=== PATIENT | female | born 1990 | race Caucasian/White ===

== ENCOUNTER 2016-08-22 19:46 | Inpatient (IN) ==
--- NOTE | 2016-08-22 20:05 | Emergency Department Note ---
Disposition Clinical Impression: Suicidal ideation, Suicide attempt Disposition: Admitted As Inpatient Condition: Fair Referrals: NO,PCP [Primary Care Provider] - Forms: ED Satisfaction Letter Time of Disposition: 21:09 Psych HPI - General Chief Complaint: ED Psychiatric Symptoms Stated Complaint: si Time Seen by Provider: 08/22/16 19:49 Source: patient Mode of arrival: ambulatory Limitations: no limitations Nursing Notes Reviewed: Yes Vital Signs Reviewed: Yes - History of Present Illness HPI Narrative: Patient is a 26-year-old female with past medical history of bipolar depression , seizures. She presents today due to suicidal ideation and suicide attempt. Patient says that she has been feeling down recently, haa been thinking about family members that have passed way (like her grandfather). She also says that she has "issues with her cousin "which she will not go into further detail about. She states that she could not sleep last night, was tired today, started having suicidal ideation. She was going to take a bottle of pills but was stopped by her mom and sister. Denies actually ingesting any medications. Denies any drug use. Denies any other self-harm like cutting. Denies any chest pain, shortness breath, nausea, vomiting, fevers, abdominal pain, dysuria , hematuria, chance of . - Related Data Home Medications Medication Instructions Recorded Confirmed Aripiprazole [Abilify] 5 mg PO HS 05/05/15 08/12/16 Escitalopram [Lexapro] 20 mg PO DAILY 05/05/15 08/12/16 Lamotrigine [Lamictal] 100 mg PO BID 05/05/15 08/12/16 Buspirone HCl [Buspar] 5 mg PO BID 11/20/15 08/12/16 Trazodone HCl 100 - 200 mg PO HS PRN 11/20/15 08/12/16 SUMAtriptan Succinate [Imitrex] 100 mg PO Q2H PRN 08/12/16 08/12/16 Previous Rx's Medication Instructions Recorded OxyCODONE/APAP 5/325 [Percocet 1 each PO Q6HR PRN #30 tablet 08/12/16 5/325 MG] Allergies Allergy/AdvReac Type Severity Reaction Status Date / Time No Known Allergies Allergy Verified 08/12/16 07:11 All systems ED: reviewed and negative except as stated. Constitutional: Denies: fever Cardiovascular: Denies: chest pain, palpitations Respiratory: Denies: cough, dyspnea, wheezes Gastrointestinal: Denies: abdominal pain, nausea, vomiting Genitourinary: Denies: urgency, frequency, hematuria, discharge Musculoskeletal: Denies: back pain Integumentary: Denies: rash Neurological: Denies: headache, weakness, numbness, paresthesias Psychiatric: Reports: depression, suicidal thoughts. Denies: homicidal thoughts , visual hallucinations Past Medical History - Past Medical History Attestation: Yes The following information was validated with the patient. Source: patient Medical history: Reports: asthma, seizures, other Psychiatric history: Reports: depression - Social History Smoking Status: Current every day smoker Smokeless Tobacco Status: No Alcohol use: Reports: none Drug use: Reports: none Physical Exam - General Limitations: no limitations General appearance: alert, in no apparent distress - Head Head exam: atraumatic, normocephalic, normal inspection - Eye Eye exam: Present: normal appearance, PERRL, EOMI - ENT ENT exam: normal exam, normal oropharynx, mucous membranes moist - Neck Neck exam: Present: normal inspection, full ROM, trachea midline - Chest Chest inspection: Present: normal inspection, symmetric chest wall rise - Respiratory Respiratory exam: Present: normal lung sounds bilaterally - Cardiovascular Cardiovascular exam: Present: regular rate, normal rhythm, normal heart sounds - Abdominal Exam Abdominal exam: Present: soft, Non-Tender. Absent: tenderness, distention, guarding, rebound, rigidity - Extremities Exam Extremities exam: Present: normal inspection, full ROM. Absent: tenderness, pedal edema - Neurological Exam Neurological exam: Present: alert, oriented X3 - Psychiatric Psychiatric exam: Present: normal affect, normal mood - Skin Skin exam: Present: warm, dry, intact, normal color Course Course Narrative: Patient vitals within normal limits. Patient already has a pink slip filled out by health officer at [facility]. Physical exam was benign. We will obtain medical clearance labs. Once medically cleared, patient has already been accepted to psychiatric service. 21:08 labs negative. Patient is pending a urine toxicology screen. If negative, patient will be admitted. Psychiatric team was recalled, they have confirmed that the patient is already accepted to , just need med clearance labs. 21:12 Urine tox negative. Patient admitted to . Vital Signs Temperature 97.2 F L 08/22/16 19:48 Pulse Rate 114 08/22/16 19:48 Respiratory Rate 18 08/22/16 19:48 Blood Pressure 127/55 08/22/16 19:48 O2 Sat by Pulse Oximetry 98 08/22/16 19:48 Temperature 97.2 F L 08/22/16 19:48 Pulse Rate 114 08/22/16 19:48 Respiratory Rate 18 08/22/16 19:48 Blood Pressure 127/55 08/22/16 19:48 O2 Sat by Pulse Oximetry 98 08/22/16 19:48 Oxygen Delivery Oxygen Delivery Room Air Psych - MDM Narrative Medical decision making narrative: Patient vitals within normal limits. Patient already has a pink slip filled out by health officer at [facility]. Physical exam was benign. We will obtain medical clearance labs. Once medically cleared, patient has already been accepted to psychiatric service. 21:08 labs negative. Patient is pending a urine toxicology screen. If negative, patient will be admitted. Psychiatric team was recalled, they have confirmed that the patient is already accepted to , just need med clearance labs. 21:12 Urine tox negative. Patient admitted to . - Lab Data Lab results reviewed: Yes I reviewed the patient's lab results. Result diagrams: 08/22/16 20:20 08/22/16 20:20 Lab Results 08/22/16 08/22/16 08/22/16 Range/Units 20:14 20:14 20:20 WBC 10.7 (4.3-11.1) K/mcL RBC 5.28 H (3.82-4.97) M/mcL Hgb 14.8 (11.5-15.4) g/dL Hct 45.6 H (35.3-44.9) % MCV 86.4 (83.0-100.0) fL MCH 28.0 (28.0-33.3) pg MCHC 32.5 (31.6-35.5) g/dL RDW 13.4 (11.5-14.5) % Plt Count 295 (140-400) K/mcL MPV 11.8 (9.4-12.4) fL Immature Gran % 0.6 (0-4) % Seg Neutrophils % 62.6 % Lymphocytes % 23.9 % Monocytes % 6.7 % Eosinophils % 5.6 % Basophils % 0.6 % Neutrophils # 6.7 (1.6-8.9) K/mcL Lymphocytes # 2.6 (0.6-4.6) K/mcL Monocytes # 0.7 (0.0-1.3) K/mcL Eosinophils # 0.6 (0.0-0.6) K/mcL Basophils # 0.1 (0.0-0.2) K/mcL Sodium (136-145) mEq/L Potassium (3.5-4.5) mEq/L Chloride (98-109) mEq/L Carbon Dioxide (19-29) mEq/L BUN (7-20) mg/dL Creatinine (0.57-1.11) mg/dL Est GFR ( Amer) (> 60) Est GFR (Non-Af Amer) (> 60) BUN/Creatinine Ratio (6-26) Glucose (70-99) mg/dL Calculated Osmolality (280-300) Calcium (8.6-10.8) mg/dL Urine Color Yellow (Yellow) Urine Clarity Cloudy A (Clear) Urine pH 6.0 (5.0-8.0) pH Units Ur Specific [place] 1.015 (1.010-1.025) Urine Protein Negative (Neg-Trace) mg/dL Urine Glucose (UA) Normal (Normal) mg/dL Urine Ketones Negative (Negative) mg/dL Urine Blood Negative (Negative) Urine Nitrite Negative (Negative) Urine Bilirubin Negative (Negative) Urine Urobilinogen Normal (Normal) mg/dL Ur Leukocyte Esterase Negative (Negative) Urine Microscopic RBC 3-5 H (0-3) per hpf Urine Microscopic WBC 3-5 H (0-3) per hpf Ur Squamous Epith Cells Many H (None-Few) per lpf Urine Bacteria Moderate H (None-Few) per hpf Hyaline Casts None Seen (None-Few) per lpf Urine Test Negative (Negative) Salicylates (15-30) mg/dL Acetaminophen (10-30) mcg/mL Ethyl Alcohol (0-10) mg/dL 08/22/16 Range/Units 20:20 WBC (4.3-11.1) K/mcL RBC (3.82-4.97) M/mcL Hgb (11.5-15.4) g/dL Hct (35.3-44.9) % MCV (83.0-100.0) fL MCH (28.0-33.3) pg MCHC (31.6-35.5) g/dL RDW (11.5-14.5) % Plt Count (140-400) K/mcL MPV (9.4-12.4) fL Immature Gran % (0-4) % Seg Neutrophils % % Lymphocytes % % Monocytes % % Eosinophils % % Basophils % % Neutrophils # (1.6-8.9) K/mcL Lymphocytes # (0.6-4.6) K/mcL Monocytes # (0.0-1.3) K/mcL Eosinophils # (0.0-0.6) K/mcL Basophils # (0.0-0.2) K/mcL Sodium 140 (136-145) mEq/L Potassium 3.5 (3.5-4.5) mEq/L Chloride 107 (98-109) mEq/L Carbon Dioxide 23 (19-29) mEq/L BUN 6 L (7-20) mg/dL Creatinine 0.70 (0.57-1.11) mg/dL Est GFR ( Amer) > 60 (> 60) Est GFR (Non-Af Amer) > 60 (> 60) BUN/Creatinine Ratio 9 (6-26) Glucose 94 (70-99) mg/dL Calculated Osmolality 287 (280-300) Calcium 9.2 (8.6-10.8) mg/dL Urine Color (Yellow) Urine Clarity (Clear) Urine pH (5.0-8.0) pH Units Ur Specific [place] (1.010-1.025) Urine Protein (Neg-Trace) mg/dL Urine Glucose (UA) (Normal) mg/dL Urine Ketones (Negative) mg/dL Urine Blood (Negative) Urine Nitrite (Negative) Urine Bilirubin (Negative) Urine Urobilinogen (Normal) mg/dL Ur Leukocyte Esterase (Negative) Urine Microscopic RBC (0-3) per hpf Urine Microscopic WBC (0-3) per hpf Ur Squamous Epith Cells (None-Few) per lpf Urine Bacteria (None-Few) per hpf Hyaline Casts (None-Few) per lpf Urine Test (Negative) Salicylates < 5.0 L (15-30) mg/dL Acetaminophen < 1.0 L (10-30) mcg/mL Ethyl Alcohol < 10 (0-10) mg/dL Psychiatric Medical Clearance - Medical Clearance Checklist Does the patient have a NEW psychiatric condition?: No Any abnormalities indicating possible medical illness?: No Any history of medical issues?: No Medical History: No Social History Section defined Any abnormal vital signs prior to transfer?: No Current Vitals: Last Vital Signs Temp 97.2 F L 08/22/16 19:48 Pulse 114 08/22/16 19:48 Resp 18 08/22/16 19:48 BP 127/55 08/22/16 19:48 Pulse Ox 98 08/22/16 19:48 Is the patient intoxicated or cognitively impaired?: No Psychiatric Lab Panel: Drug Levels and Toxicity 08/22/16 20:20 Acetaminophen < 1.0 L Ethyl Alcohol < 10 Any abnormalities on the physical exam?: No Any abnormal labs?: No Abnormal Labs: Abnormal lab results RBC 5.28 M/mcL (3.82-4.97) H 08/22/16 20:20 Hct 45.6 % (35.3-44.9) H 08/22/16 20:20 BUN 6 mg/dL (7-20) L 08/22/16 20:20 Urine Clarity Cloudy (Clear) A 08/22/16 20:14 Urine Microscopic RBC 3-5 per hpf (0-3) H 08/22/16 20:14 Urine Microscopic WBC 3-5 per hpf (0-3) H 08/22/16 20:14 Ur Squamous Epith Cells Many per lpf (None-Few) H 08/22/16 20:14 Urine Bacteria Moderate per hpf (None-Few) H 08/22/16 20:14 Salicylates < 5.0 mg/dL (15-30) L 08/22/16 20:20 Acetaminophen < 1.0 mcg/mL (10-30) L 08/22/16 20:20 Does the patient require durable medical equiptment?: No Is the patient ambulatory?: No Is the patient a fall risk?: No Has the patient been medically cleared?: Yes Any acute medical condition require Tx prior to transfer?: No Statement of Medical Clearance: I have evaluated the patient, reviewed diagnostic information, and certify that the patient's medical condition is sufficiently stable that transfer to the psychiatric unit does not pose a significant risk of deterioration. Attestation Statement - Attestation Attestation: I examined this patient and my medical decision-making was reviewed with the DECISION ANALYST/PA/Advanced Practice Nurse/Resident Physician. I agree with the documented findings, disposition and treatment plan as described except to the extent set forth below.
[2016-08-22 20:28] LABS: Basophils # 0.1 K/mcL (0.0-0.2); Basophils % 0.6 %; Eosinophils # 0.6 K/mcL (0.0-0.6); Eosinophils % 5.6 %; Hematocrit 45.6 % (35.3-44.9); Hemoglobin 14.8 g/dL (11.5-15.4); Immature Granulocytes % 0.6 % (0-4); Lymphocytes # 2.6 K/mcL (0.6-4.6); Lymphocytes % 23.9 %; Mean Corpuscular HGB Conc 32.5 g/dL (31.6-35.5); Mean Corpuscular Volume 86.4 fL (83.0-100.0); Mean Platelet Volume 11.8 fL (9.4-12.4); Monocytes # 0.7 K/mcL (0.0-1.3); Monocytes % 6.7 %; Neutrophils # 6.7 K/mcL (1.6-8.9); Platelet Count 295 K/mcL (140-400); Red Blood Count 5.28 M/mcL (3.82-4.97); Red Cell Distribution Width 13.4 % (11.5-14.5); Segmented Neutrophils % 62.6 %
[2016-08-22 20:35] LABS: Bilirubin,Urine Negative (Negative); Blood,Urine Negative (Negative); Clarity,Urine Cloudy (Clear); Color,Urine Yellow (Yellow); Glucose,Urine (UA) Normal (Normal); Ketones,Urine Negative (Negative); Leukocyte Esterase,Urine Negative (Negative); Nitrite,Urine Negative (Negative); Protein,Urine Negative (Neg-Trace); Specific Gravity,Urine 1.015 (1.010-1.025); Urobilinogen,Urine Normal (Normal)
[2016-08-22 20:36] LABS: Bacteria,Urine Moderate per hpf (None-Few); Hyaline Casts,Urine None Seen per lpf (None-Few); Squamous Epithelial Cell,Urine Many per lpf (None-Few)
[2016-08-22 20:45] LABS: BUN/Creatinine Ratio 9 (6-26); Blood Urea Nitrogen 6 mg/dL (7-20); Calcium 9.2 mg/dL (8.6-10.8); Carbon Dioxide 23 mEq/L (19-29); Chloride 107 mEq/L (98-109); Glucose 94 mg/dL (70-99); Osmolality,Calculated 287 (280-300); Potassium 3.5 mEq/L (3.5-4.5); Sodium 140 mEq/L (136-145); eGFR For African Americans > 60 (> 60); eGFR For Non-African Americans > 60 (> 60)
[2016-08-22 20:46] LABS: Acetaminophen < 1.0 mcg/mL (10-30); Salicylate < 5.0 mg/dL (15-30)
[2016-08-22 20:49] LABS: Ethanol < 10 mg/dL (0-10)
[2016-08-22 21:10] LABS: Amphetamine Screen,Urine Negative ng/mL (Cutoff=1000); Barbiturate Screen,Urine Negative ng/mL (Cutoff=200); Benzodiazepines Screen,Urine Negative ng/mL (Cutoff=200); Cannabinoid Screen,Urine Negative ng/mL (Cutoff = 50); Cocaine Screen,Urine Negative ng/mL (Cutoff= 300); Opiate Screen,Urine Negative ng/mL (Cutoff=300); Phencyclidine Screen,Urine Negative ng/mL (Cutoff=25)
[2016-08-22] MEDS ORDERED: hydrOXYzine pamoate 25 MG CAPSULE PO PRN (21:57)
[2016-08-22] MEDS ORDERED: traZODone 50 MG TABLET PO PRN (21:57)
[2016-08-22] MEDS ORDERED: Ibuprofen 400 MG TABLET PO PRN (21:57)
[2016-08-22] MEDS ORDERED: MOM Conc 10 ML UD.LIQ PO PRN (21:57)
[2016-08-22] MEDS ORDERED: Mag Hydrox/Al Hydrox/Simeth 30 ML UDC PO PRN (21:57)
[2016-08-22] MEDS ORDERED: *HR* LORazepam 2 MG/ML VIAL IM PRN (21:57)
[2016-08-22] MEDS ORDERED: *HR* LORazepam 1 MG TABLET PO PRN (21:57)
[2016-08-22] MEDS ORDERED: Haloperidol Lactate 5 MG/ML VIAL IM PRN (21:57)
[2016-08-23] MEDS ORDERED: Nicotine 2 MG GUM BC PRN (08:55)
[2016-08-23] MEDS ORDERED: Nicotine 21 MG PATCH.TD24 TD SCH (09:00)
--- NOTE | 2016-08-23 10:15 | Psychiatry History & Physical ---
Date of Encounter: 08/24/16 Time of Encounter: 09:30 History of Present Illness Patient Stated Chief Complaint: Suicidal Medicare Admission Attestation: For traditional Medicare patients the provided hospital inpatient services are reasonable and necessary and in the case of services not specified as inpatient -only under 42 CFR 419.22 (n), that they are appropriately provided as inpatient services in accordance 42 CFR 412.3. For Critical Access Hospital the patient may reasonably be expected to be discharged or transferred to a hospital within 96 hours after admission to the Critical Access Hospital. Admitted From: Emergency Dept History of Present Illness: Ms. Soni is a 26 year old female admitted from the emergency room for evaluation treatment of depression and suicidal ideation with intent to overdose on medication. Patient was feeling depressed and was going to overdose on medication and her mother's sister stopped her and brought her into the hospital. Patient has a history of depressive disorder and bipolar disorder for several years and has been treated as outpatient at [facility] and [facility]. She also has a history of seizure disorder and treated with Lamictal. Patient had history of self mutilating cutting and denied any previous hospitalization. She has high school education but has difficulty reading and writing. She is too busy. 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 She smokes half a pack of cigarettes a day, consumes some caffeine from soda. She denies using alcohol or drugs. Past Med Surg Social Fam HX - Past Medical History Medical history: asthma, seizures, other - Past Psychiatric History Psychiatric history: Reports: bipolar, depression. Denies: previous psychiatric hospitalization Family psychiatric history: Unknown Family History of Suicide: Unknown - Past Surgical History Surgical History: cholecystectomy - Social History Smoking Status: Current every day smoker Smokeless Tobacco Status: No Alcohol use: none Drug use: none Medications & Allergies Aripiprazole [Abilify] 5 mg PO HS 05/05/15 [History] Escitalopram [Lexapro] 20 mg PO DAILY 05/05/15 [History] Lamotrigine [Lamictal] 100 mg PO BID 05/05/15 [History] Buspirone HCl [Buspar] 5 mg PO BID 11/20/15 [History] Trazodone HCl 100 - 200 mg PO HS PRN 11/20/15 [History] SUMAtriptan Succinate [Imitrex] 100 mg PO Q2H PRN MDD 200 mg 08/12/16 [History] Allergies No Known Allergies Allergy (Verified 08/12/16 07:11) Review of Systems Psychiatric: Reports: depression, suicidal ideation, mood swings Mental Status Exam Patient orientation: Yes Person, Yes Time, Yes Place Level of alertness: Alert Patient appearance: Appropriate, Well Groomed, Obese Behavior: calm, cooperative, anxious Psychomotor activity: Normal Eye contact: Maintains Eye Contact Mood description: Depressed, Anxious Affect description: congruent with mood, constricted Speech pattern: Normal rate, Normal rhythm, Normal tone Speech volume: Normal Thought process: Linear, Goal Oriented Thought content: Yes Suicidal ideation, No Homicidal ideation, No Overt delusions Perceptual disturbances: No Auditory hallucinations, No Visual hallucinations Attention span: Capable of Focused Attention Memory description: Grossly Intact Patient reliability: Reliable Historian Intelligence estimate: Below Average Judgment: Limited Insight: Partial Results - Vital Signs Vital signs: Temp Pulse Resp BP Pulse Ox 97.9 F 71 16 110/70 93 08/23/16 08:54 08/23/16 08:54 08/23/16 08:54 08/23/16 08:54 08/22/16 21:17 - Labs Labs: Laboratory Last Values WBC 10.7 K/mcL (4.3-11.1) 08/22/16 20:20 RBC 5.28 M/mcL (3.82-4.97) H 08/22/16 20:20 Hgb 14.8 g/dL (11.5-15.4) 08/22/16 20:20 Hct 45.6 % (35.3-44.9) H 08/22/16 20:20 MCV 86.4 fL (83.0-100.0) 08/22/16 20:20 MCH 28.0 pg (28.0-33.3) 08/22/16 20:20 MCHC 32.5 g/dL (31.6-35.5) 08/22/16 20:20 RDW 13.4 % (11.5-14.5) 08/22/16 20:20 Plt Count 295 K/mcL (140-400) 08/22/16 20:20 MPV 11.8 fL (9.4-12.4) 08/22/16 20:20 Immature Gran % 0.6 % (0-4) 08/22/16 20:20 Seg Neutrophils % 62.6 % 08/22/16 20:20 Lymphocytes % 23.9 % 08/22/16 20:20 Monocytes % 6.7 % 08/22/16 20:20 Eosinophils % 5.6 % 08/22/16 20:20 Basophils % 0.6 % 08/22/16 20:20 Neutrophils # 6.7 K/mcL (1.6-8.9) 08/22/16 20:20 Lymphocytes # 2.6 K/mcL (0.6-4.6) 08/22/16 20:20 Monocytes # 0.7 K/mcL (0.0-1.3) 08/22/16 20:20 Eosinophils # 0.6 K/mcL (0.0-0.6) 08/22/16 20:20 Basophils # 0.1 K/mcL (0.0-0.2) 08/22/16 20:20 Sodium 140 mEq/L (136-145) 08/22/16 20:20 Potassium 3.5 mEq/L (3.5-4.5) 08/22/16 20:20 Chloride 107 mEq/L (98-109) 08/22/16 20:20 Carbon Dioxide 23 mEq/L (19-29) 08/22/16 20:20 BUN 6 mg/dL (7-20) L 08/22/16 20:20 Creatinine 0.70 mg/dL (0.57-1.11) 08/22/16 20:20 Est GFR ( Amer) > 60 (> 60) 08/22/16 20:20 Est GFR (Non-Af Amer) > 60 (> 60) 08/22/16 20:20 BUN/Creatinine Ratio 9 (6-26) 08/22/16 20:20 Glucose 94 mg/dL (70-99) 08/22/16 20:20 Calculated Osmolality 287 (280-300) 08/22/16 20:20 Calcium 9.2 mg/dL (8.6-10.8) 08/22/16 20:20 Urine Color Yellow (Yellow) 08/22/16 20:14 Urine Clarity Cloudy (Clear) A 08/22/16 20:14 Urine pH 6.0 pH Units (5.0-8.0) 08/22/16 20:14 Ur Specific [place] 1.015 (1.010-1.025) 08/22/16 20:14 Urine Protein Negative mg/dL (Neg-Trace) 08/22/16 20:14 Urine Glucose (UA) Normal mg/dL (Normal) 08/22/16 20:14 Urine Ketones Negative mg/dL (Negative) 08/22/16 20:14 Urine Blood Negative (Negative) 08/22/16 20:14 Urine Nitrite Negative (Negative) 08/22/16 20:14 Urine Bilirubin Negative (Negative) 08/22/16 20:14 Urine Urobilinogen Normal mg/dL (Normal) 08/22/16 20:14 Ur Leukocyte Esterase Negative (Negative) 08/22/16 20:14 Urine Microscopic RBC 3-5 per hpf (0-3) H 08/22/16 20:14 Urine Microscopic WBC 3-5 per hpf (0-3) H 08/22/16 20:14 Ur Squamous Epith Cells Many per lpf (None-Few) H 08/22/16 20:14 Urine Bacteria Moderate per hpf (None-Few) H 08/22/16 20:14 Hyaline Casts None Seen per lpf (None-Few) 08/22/16 20:14 Urine Test Negative (Negative) 08/22/16 20:14 Salicylates < 5.0 mg/dL (15-30) L 08/22/16 20:20 Urine Opiates Screen Negative ng/mL (Yhxtaf=000) 08/22/16 20:14 Acetaminophen < 1.0 mcg/mL (10-30) L 08/22/16 20:20 Ur Barbiturates Screen Negative ng/mL (Jikrgw=269) 08/22/16 20:14 Ur Phencyclidine Scrn Negative ng/mL (Cutoff=25) 08/22/16 20:14 Ur Amphetamines Screen Negative ng/mL (Pogvtv=5925) 08/22/16 20:14 U Benzodiazepines Scrn Negative ng/mL (Zvqovq=285) 08/22/16 20:14 Urine Cocaine Screen Negative ng/mL (Cutoff= 300) 08/22/16 20:14 U Marijuana (THC) Screen Negative ng/mL (Cutoff = 50) 08/22/16 20:14 Ethyl Alcohol < 10 mg/dL (0-10) 08/22/16 20:20 Assessment and Plan (1) Bipolar disorder current episode depressed Current visit: Yes Status: Acute Plan: Admit inpatient for safety and stabilization, Close observation, Suicide Precautions per unit protocol, Encourage participation in unit milieu, Group Therapy, Monitor sleep, Monitor appetite Additional Plan: We will restart all medications and to monitor her response and make changes as appropriate. Risks, benefits, side effects, alternatives discussed w/pt: Yes Patient agreeable to treatment: Yes Qualifiers: Current episode severity: severe Psychotic features: with psychotic features Qualified Code(s): F31.5 - Bipolar disorder, current episode depressed, severe, with psychotic features
[2016-08-24 09:06] VITALS: BP 122/73
[2016-08-24] MEDS ORDERED: traZODone 50 MG TABLET PO PRN (13:15)
[2016-08-24] MEDS ORDERED: SUMAtriptan succinate 50 MG TABLET PO PRN (13:15)
[2016-08-24] MEDS ORDERED: lamoTRIgine 100 MG TABLET PO SCH (13:15)
--- NOTE | 2016-08-24 14:14 | Discharge Summary ---
Date of Encounter: 08/24/16 Time of Encounter: 13:45 Diagnosis - Discharge Diagnosis (1) Bipolar disorder current episode depressed Status: Acute Qualifiers: Current episode severity: severe Psychotic features: with psychotic features Qualified Code(s): F31.5 - Bipolar disorder, current episode depressed, severe, with psychotic features Medications - Discharge Medications Aripiprazole [Abilify] 5 mg PO HS 05/05/15 [History] Escitalopram [Lexapro] 20 mg PO DAILY 05/05/15 [History] Lamotrigine [Lamictal] 100 mg PO BID 05/05/15 [History] Buspirone HCl [Buspar] 5 mg PO BID 11/20/15 [History] Trazodone HCl 100 - 200 mg PO HS PRN 11/20/15 [History] SUMAtriptan Succinate [Imitrex] 100 mg PO Q2H PRN MDD 200 mg 08/12/16 [History] Allergies No Known Allergies Allergy (Verified 08/12/16 07:11) Provider Date of admission: 08/22/16 21:42 Primary care physician: PCP NO Discharging clinician: Janusz Juarez Assessment and Plan - Patient/Caregiver Discharge Instructions Activity: resume usual activities as tolerated Diet: regular diet - Follow up Plan Follow up with: [facility] [Outside] - 09/27/16 9:20 am (The above appointment is with Dr. Cunningham.) [facility] [Outside] - 09/05/16 8:30 am (The above appointment is with Tara. When you come to your first appointment, you will have an orientation to the agency and you will meet with a counselor. Please bring the following with you to your first visit to the clinic: 1) proof of household income (two consecutive pay stubs, social security award letter, bank statement , statement letter from [facility], child support statement, IRS 1040 or W2 form, or a statement from the person who financially supports you stating they help provide for your basic needs), 2) proof of residency (drivers license, a piece of mail showing your address, a statement from person you live with verifying you live at their address), 3) your social security card, 4) photo ID, 5) your insurance card (if you have commercial insurance you must call to obtain a prior authorization number before you arrive to your first appointment) and 6) if you do not have insurance but have applied for Medicaid, please bring verification you have applied. Also, please bring a copy of guardianship paperwork.) Functional capacity at discharge: independent ambulation Overall status at discharge: Stable Disposition: Home, Self-Care Hospital Course Hospital course: Ms. Soni is a 26 year old female admitted for suicidal ideation. For details of admission please see H&P On the unit patient was started on her medication, no medication changes were made. Patient reported improved sleep and denies suicidal ideation. She was educated about medication compliance. She participated in some activities and she was medically stable at discharge. Her discharge plan and follow-up were reviewed by psychiatric social worker supervisor. - Time Spent with Patient Total time spent providing and/or coordinating discharge services: Less than 30 minutes Quality - Multiple Antipsychotics Patient discharged on 2 or more antipsychotic medications: No Procedures - Procedures Procedures: Medication Management, Crisis Stabilization, Supportive Therapy, Group Therapy, Psychoeducational Therapy Mental Status Exam - Mental Status Exam Patient orientation: Yes Person, Yes Time, Yes Place Level of alertness: Alert Patient appearance: Appropriate, Well Groomed, Obese Behavior: calm, cooperative Psychomotor activity: Normal Eye contact: Maintains Eye Contact Mood description: Euthymic/stable Affect description: congruent with mood, full range Speech pattern: Normal rate, Normal rhythm, Normal tone Speech Volume: Normal Thought process: Linear, Goal Oriented Thought Content: No Suicidal ideation, No Homicidal ideation, No Overt delusions Perceptual Disturbances: No Auditory hallucinations, No Visual hallucinations Judgment: Limited Insight: Partial
[2016-08-24] MEDS ORDERED: ARIPiprazole 5 MG TABLET PO SCH (21:00)
== END 2016-08-24 15:05 | disposition home or self-care (01) | DRG 753 ==
LOC: EMEROO 19:46 → 1ANU 21:42
PROVIDERS: ADMIT Psychiatry & Neurology Psychiatry; ATTEND Psychiatry & Neurology Psychiatry

== ENCOUNTER 2020-11-25 19:10 | Inpatient (IN) ==
[2020-11-25] MEDS ORDERED: Isovue-370 500 ML BOTTLE IVP ONE (20:51)
[2020-11-25] MEDS ORDERED: Ketorolac 15 MG/ML VIAL IVP ONE (20:53)
[2020-11-25 21:25] LABS: Basophils % 0.4 %; Eosinophils % 0.3 %; Hematocrit 41.2 % (35.3-44.9); Monocytes % 10.2 %; Segmented Neutrophils % 82.7 %
[2020-11-25 21:26] LABS: Basophils # 0.1 K/mcL (0.0-0.2); Eosinophils # 0.1 K/mcL (0.0-0.6); Hemoglobin 13.9 g/dL (11.5-15.4); Immature Granulocytes % 1.4 % (0-4); Lymphocytes # 1.4 K/mcL (0.6-4.6); Mean Corpuscular HGB Conc 33.7 g/dL (31.6-35.5); Mean Corpuscular Hemoglobin 29.4 pg (28.0-33.3); Mean Corpuscular Volume 87.3 fL (83.0-100.0); Mean Platelet Volume 11.9 fL (9.4-12.4); Monocytes # 2.8 K/mcL (0.0-1.3); Platelet Count 334 K/mcL (140-400); Red Blood Count 4.72 M/mcL (3.82-4.97); Red Cell Distribution Width 13.3 % (11.5-14.5); White Blood Count 27.8 K/mcL (4.3-11.1)
[2020-11-25 21:38] LABS: Alanine Aminotransferase 10 Units/L (7-52); Albumin 3.8 g/dL (3.5-5.7); Albumin/Globulin Ratio 1.1 (1.1-2.2); Alkaline Phosphatase 103 Units/L (34-104); Aspartate Amino Transferase 11 Units/L (13-39); BUN/Creatinine Ratio 9 (6-26); Bilirubin,Direct 0.3 mg/dL (0.0-0.2); Bilirubin,Indirect 0.9 mg/dL (0.0-1.0); Bilirubin,Total 1.2 mg/dL (0.3-1.0); Blood Urea Nitrogen 7 mg/dL (6-20); Calcium 8.9 mg/dL (8.6-10.3); Carbon Dioxide 22 mEq/L (23-29); Chloride 100 mEq/L (98-107); Globulin 3.4 g/dL (2.4-3.5); Glucose 129 mg/dL (70-105); Osmolality,Calculated 274 (280-300); Potassium 3.3 mEq/L (3.5-5.1); Sodium 132 mEq/L (136-145); Total Protein 7.2 g/dL (6.4-8.9); eGFR For African Americans > 60 (> 60); eGFR For Non-African Americans > 60 (> 60)
[2020-11-25 21:47] LABS: Platelet Estimate Normal (Normal)
[2020-11-25] MEDS ORDERED: Vancomycin 2,000 MG/520 ML IV.SOLN IVPB ONE (22:23)
[2020-11-25] MEDS ORDERED: Piperacillin/Tazobactam 3.375 GM in Water for inj. (sterile) 20 ML IVP ONE (22:23)
[2020-11-25] MEDS ORDERED: *HR* HYDROcodone/Acet 5/325 mg TABLET PO ONE (22:30)
[2020-11-25] MEDS ORDERED: 0.9 % Sodium Chloride 1,000 ML IVC ONE (22:37)
[2020-11-26 03:12] LABS: Bacteria,Urine Few per hpf (None-Few); Bilirubin,Urine Negative (Negative); Blood,Urine Large (Negative); Clarity,Urine Clear (Clear); Color,Urine Light-Orange (Yellow); Glucose,Urine (UA) Normal (Normal); Ketones,Urine Negative (Negative); Leukocyte Esterase,Urine Negative (Negative); Nitrite,Urine Negative (Negative); PH,Urine 6.5 pH Units (5.0-8.0); Protein,Urine Trace mg/dL (Neg-Trace); Specific Gravity,Urine > 1.030 (1.010-1.025); Squamous Epithelial Cell,Urine Moderate per hpf (None-Few); Urobilinogen,Urine Normal (Normal)
[2020-11-26] MEDS ORDERED: Ondansetron 4 MG/2 ML VIAL IVP PRN ×3 (07:37→10:33)
[2020-11-26] MEDS ORDERED: 0.9 % Sodium Chloride w KCl 20 MEQ/1,000 ML MLS IVC SCH ×2 (07:45→10:33)
[2020-11-26] MEDS ORDERED: Piperacillin/Tazobactam 3.375 GM in 0.9 % Sodium Chloride Mini Bag 100 ML IVPB SCH ×3 (08:00→16:00)
[2020-11-26] MEDS ORDERED: Vancomycin 1,750 MG in 0.9 % Sodium Chloride 250 ML IVPB SCH (10:33)
[2020-11-26] MEDS ORDERED: Pantoprazole 40 MG VIAL IVP SCH (10:33)
[2020-11-26] MEDS ORDERED: Naloxone 0.4 MG/ML INJ IVP PRN ×2 (10:33→15:39)
[2020-11-26] MEDS ORDERED: *HR* FentaNYL (PF) 100 MCG/2 ML VIAL IVP PRN ×2 (10:33→15:39)
[2020-11-26] MEDS ORDERED: *HR* OxyCODONE Immed Rel 5 MG TABLET PO PRN (10:46)
[2020-11-26] MEDS ORDERED: Ondansetron 4 MG/2 ML VIAL ONE (11:42)
[2020-11-26] MEDS ORDERED: *HR* Propofol 200 MG/20 ML VIAL IVP ONE (11:42)
[2020-11-26] MEDS ORDERED: *HR* Rocuronium Bromide 50 MG/5 ML VIAL ONE ×2 (11:42→14:07)
[2020-11-26] MEDS ORDERED: Lidocaine -MPF 2% 2 ML VIAL ONE (11:42)
[2020-11-26] MEDS ORDERED: *HR* FentaNYL (PF) 100 MCG/2 ML VIAL ONE ×3 (11:42→13:52)
[2020-11-26] MEDS ORDERED: Lidocaine HCL 4 ML Topical Solution (Laryng-O-Jet Kit Sterile Pak) TP ONE (11:42)
[2020-11-26] MEDS ORDERED: *HR* Midazolam HCl 2 MG/2 ML VIAL ONE (11:42)
[2020-11-26] MEDS ORDERED: *HR* Succinylcholine 200 MG/10 ML VIAL IVP ONE (11:42)
[2020-11-26] MEDS ORDERED: Vancomycin 1,500 MG/265 ML IV.SOLN IVPB SCH (12:00)
[2020-11-26] MEDS ORDERED: Vancomycin 1,000 MG VIAL ONE (13:21)
[2020-11-26] MEDS ORDERED: Sugammadex Sodium 200 MG/2 ML VIAL IV ONE (14:20)
[2020-11-26] MEDS ORDERED: *HR* HYDROMORPHONE 2 MG/ML VIAL ONE (14:23)
[2020-11-26] MEDS: *HR* HYDROmorphone PF 0.5 MG/0.5 ML SYRINGE IVP PRN ×3 (15:10→15:35)
[2020-11-26] MEDS: 0.9 % Sodium Chloride w KCl 20 MEQ/1,000 ML MLS IVC SCH (16:18)
[2020-11-26] MEDS: Vancomycin 1,500 MG/265 ML IV.SOLN IVPB SCH (16:25)
[2020-11-26] MEDS: Piperacillin/Tazobactam 3.375 GM in 0.9 % Sodium Chloride Mini Bag 100 ML IVPB SCH (19:32)
[2020-11-26] MEDS: *HR* OxyCODONE Immed Rel 5 MG TABLET PO PRN (19:41)
[2020-11-27] MEDS ORDERED: Acetaminophen 325 MG TABLET PO PRN (00:38)
[2020-11-27] MEDS: 0.9 % Sodium Chloride w KCl 20 MEQ/1,000 ML MLS IVC SCH ×2 (00:51→11:00)
[2020-11-27] MEDS: Ondansetron 4 MG/2 ML VIAL IVP PRN ×3 (00:59→16:27)
[2020-11-27] MEDS: *HR* OxyCODONE Immed Rel 5 MG TABLET PO PRN ×2 (03:40→11:57)
[2020-11-27] MEDS: Piperacillin/Tazobactam 3.375 GM in 0.9 % Sodium Chloride Mini Bag 100 ML IVPB SCH ×3 (03:41→18:11)
[2020-11-27] MEDS: Vancomycin 1,500 MG/265 ML IV.SOLN IVPB SCH (05:33)
[2020-11-27 05:34] LABS: Basophils # 0.1 K/mcL (0.0-0.2); Basophils % 0.4 %; Eosinophils # 0.1 K/mcL (0.0-0.6); Eosinophils % 0.2 %; Hematocrit 35.5 % (35.3-44.9); Lymphocytes # 0.8 K/mcL (0.6-4.6); Lymphocytes % 3.3 %; Mean Corpuscular HGB Conc 31.8 g/dL (31.6-35.5); Mean Corpuscular Hemoglobin 29.1 pg (28.0-33.3); Mean Corpuscular Volume 91.5 fL (83.0-100.0); Mean Platelet Volume 12.5 fL (9.4-12.4); Monocytes # 1.6 K/mcL (0.0-1.3); Monocytes % 6.7 %; Neutrophils # 21.4 K/mcL (1.6-8.9); Platelet Count 220 K/mcL (140-400); Red Blood Count 3.88 M/mcL (3.82-4.97); Red Cell Distribution Width 13.4 % (11.5-14.5); Segmented Neutrophils % 88.4 %; White Blood Count 24.2 K/mcL (4.3-11.1)
[2020-11-27] MEDS: *HR* Enoxaparin 40 MG/0.4 ML SYRINGE SQ SCH (05:34)
[2020-11-27 05:37] LABS: Hemoglobin 11.3 g/dL (11.5-15.4)
[2020-11-27] MEDS ORDERED: *HR* Enoxaparin 40 MG/0.4 ML SYRINGE SQ SCH ×2 (06:00)
[2020-11-27 10:03] LABS: Calcium 7.6 mg/dL (8.6-10.3); Magnesium 1.8 mg/dL (1.6-2.6); Phosphorous 4.2 mg/dL (2.7-4.5); Potassium 4.2 mEq/L (3.5-5.1)
[2020-11-27] MEDS: Pantoprazole 40 MG VIAL IVP SCH (10:13)
[2020-11-27] MEDS: 0.9 % Sodium Chloride 1,000 ML IVC SCH ×5 (14:09→23:38)
[2020-11-28 01:21] LABS: Basophils # 0.1 K/mcL (0.0-0.2); Basophils % 0.3 %; Eosinophils # 1.4 K/mcL (0.0-0.6); Hematocrit 28.1 % (35.3-44.9); Hemoglobin 9.1 g/dL (11.5-15.4); Immature Granulocytes % 0.8 % (0-4); Lymphocytes # 0.8 K/mcL (0.6-4.6); Lymphocytes % 4.5 %; Mean Corpuscular HGB Conc 32.4 g/dL (31.6-35.5); Mean Corpuscular Hemoglobin 29.7 pg (28.0-33.3); Mean Corpuscular Volume 91.8 fL (83.0-100.0); Mean Platelet Volume 12.4 fL (9.4-12.4); Monocytes # 1.1 K/mcL (0.0-1.3); Monocytes % 6.4 %; Neutrophils # 14.1 K/mcL (1.6-8.9); Platelet Count 214 K/mcL (140-400); Red Blood Count 3.06 M/mcL (3.82-4.97); White Blood Count 17.6 K/mcL (4.3-11.1)
[2020-11-28 01:55] LABS: Calcium 7.2 mg/dL (8.6-10.3); Magnesium 1.7 mg/dL (1.6-2.6); Phosphorous 3.2 mg/dL (2.7-4.5); Potassium 4.2 mEq/L (3.5-5.1)
[2020-11-28] MEDS: Piperacillin/Tazobactam 3.375 GM in 0.9 % Sodium Chloride Mini Bag 100 ML IVPB SCH ×3 (03:20→17:56)
[2020-11-28] MEDS: 0.9 % Sodium Chloride 1,000 ML IVC SCH ×3 (03:29→14:29)
[2020-11-28] MEDS: *HR* Enoxaparin 40 MG/0.4 ML SYRINGE SQ SCH (06:17)
[2020-11-28] MEDS: Pantoprazole 40 MG VIAL IVP SCH (09:00)
[2020-11-28] MEDS: *HR* OxyCODONE Immed Rel 5 MG TABLET PO PRN ×2 (09:18→19:25)
[2020-11-28] MEDS: Sodium Bicarbonate 75 MEQ in 0.45 % Sodium Chloride 1,000 ML IVC SCH (15:02)
[2020-11-28 16:25] LABS: Sodium, Urine 62.7 mEq/L
[2020-11-28 16:35] LABS: Albumin 2.8 g/dL (3.5-5.7); Calcium 7.9 mg/dL (8.6-10.3); Phosphorous 3.2 mg/dL (2.7-4.5)
[2020-11-29] MEDS: Piperacillin/Tazobactam 3.375 GM in 0.9 % Sodium Chloride Mini Bag 100 ML IVPB SCH ×4 (02:57→20:49)
[2020-11-29] MEDS: Sodium Bicarbonate 75 MEQ in 0.45 % Sodium Chloride 1,000 ML IVC SCH ×3 (02:59→20:50)
[2020-11-29] MEDS: *HR* Enoxaparin 30 MG/0.3 ML SYRINGE SQ SCH (05:33)
[2020-11-29] MEDS: *HR* OxyCODONE Immed Rel 5 MG TABLET PO PRN (05:34)
[2020-11-29 07:15] LABS: Basophils # 0.1 K/mcL (0.0-0.2); Basophils % 0.4 %; Eosinophils # 2.3 K/mcL (0.0-0.6); Eosinophils % 13.8 %; Hematocrit 29.7 % (35.3-44.9); Immature Granulocytes % 1.5 % (0-4); Lymphocytes # 1.2 K/mcL (0.6-4.6); Lymphocytes % 7.6 %; Mean Corpuscular HGB Conc 30.6 g/dL (31.6-35.5); Mean Corpuscular Hemoglobin 28.5 pg (28.0-33.3); Mean Corpuscular Volume 93.1 fL (83.0-100.0); Mean Platelet Volume 12.4 fL (9.4-12.4); Monocytes # 1.3 K/mcL (0.0-1.3); Monocytes % 7.9 %; Neutrophils # 11.2 K/mcL (1.6-8.9); Platelet Count 318 K/mcL (140-400); Red Blood Count 3.19 M/mcL (3.82-4.97); Segmented Neutrophils % 68.8 %; White Blood Count 16.3 K/mcL (4.3-11.1)
[2020-11-29 07:17] LABS: Hemoglobin 9.1 g/dL (11.5-15.4)
[2020-11-29 08:18] LABS: Potassium 3.9 mEq/L (3.5-5.1)
[2020-11-29] MEDS: Pantoprazole 40 MG VIAL IVP SCH (08:58)
[2020-11-29] MEDS: Ondansetron 4 MG/2 ML VIAL IVP PRN (21:07)
[2020-11-30] MEDS: Sodium Bicarbonate 75 MEQ in 0.45 % Sodium Chloride 1,000 ML IVC SCH ×3 (03:56→18:56)
[2020-11-30] MEDS: Piperacillin/Tazobactam 3.375 GM in 0.9 % Sodium Chloride Mini Bag 100 ML IVPB SCH (03:57)
[2020-11-30] MEDS: *HR* Enoxaparin 30 MG/0.3 ML SYRINGE SQ SCH (03:59)
[2020-11-30 05:26] LABS: Basophils # 0.1 K/mcL (0.0-0.2); Basophils % 0.4 %; Eosinophils # 1.2 K/mcL (0.0-0.6); Eosinophils % 7.8 %; Hematocrit 30.2 % (35.3-44.9); Hemoglobin 9.8 g/dL (11.5-15.4); Immature Granulocytes % 1.6 % (0-4); Lymphocytes # 1.2 K/mcL (0.6-4.6); Lymphocytes % 7.9 %; Mean Corpuscular HGB Conc 32.5 g/dL (31.6-35.5); Mean Corpuscular Hemoglobin 29.6 pg (28.0-33.3); Mean Corpuscular Volume 91.2 fL (83.0-100.0); Mean Platelet Volume 12.1 fL (9.4-12.4); Monocytes # 1.4 K/mcL (0.0-1.3); Monocytes % 9.2 %; Neutrophils # 11.4 K/mcL (1.6-8.9); Platelet Count 379 K/mcL (140-400); Red Blood Count 3.31 M/mcL (3.82-4.97); Red Cell Distribution Width 13.9 % (11.5-14.5); Segmented Neutrophils % 73.1 %; White Blood Count 15.6 K/mcL (4.3-11.1)
[2020-11-30 05:50] LABS: Calcium 8.1 mg/dL (8.6-10.3); Potassium 3.8 mEq/L (3.5-5.1)
[2020-11-30] MEDS: Pantoprazole 40 MG VIAL IVP SCH (08:50)
[2020-11-30 14:45] LABS: Hepatitis B Surface Antigen Nonreactive (Nonreactive)
[2020-11-30 15:13] LABS: Hepatitis B Surface Antibody 83.08 mIU/mL
[2020-11-30] MEDS ORDERED: Scopolamine Patch 1.5 MG PATCH.TD72 TD SCH ×2 (17:45)
[2020-11-30] MEDS ORDERED: Piperacillin/Tazobactam 3.375 GM in 0.9 % Sodium Chloride Mini Bag 100 ML IVPB SCH (18:00)
[2020-12-01] MEDS: *HR* OxyCODONE Immed Rel 5 MG TABLET PO PRN (01:54)
[2020-12-01] MEDS: Ondansetron 4 MG/2 ML VIAL IVP PRN ×2 (01:59→09:00)
[2020-12-01 02:25] LABS: Magnesium 1.9 mg/dL (1.6-2.6); Phosphorous 4.3 mg/dL (2.7-4.5)
[2020-12-01 02:26] LABS: Calcium 7.9 mg/dL (8.6-10.3); Potassium 3.8 mEq/L (3.5-5.1)
[2020-12-01] MEDS: *HR* Enoxaparin 30 MG/0.3 ML SYRINGE SQ SCH (05:06)
[2020-12-01] MEDS: Sodium Bicarbonate 75 MEQ in 0.45 % Sodium Chloride 1,000 ML IVC SCH ×2 (06:21→18:19)
[2020-12-01] MEDS ORDERED: *HR* Heparin 10,000 UNIT/10 ML VIAL IV PRN ×2 (07:57→17:21)
[2020-12-01] MEDS ORDERED: 0.9 % Sodium Chloride 250 ML IVC PRN ×2 (07:57→17:21)
[2020-12-01] MEDS ORDERED: 0.9 % Sodium Chloride 1,000 ML PRIME SCH ×2 (08:00→17:21)
[2020-12-01] MEDS ORDERED: Lidocaine/EPI 1:100k 1% 50 ML VIAL ONE (08:48)
[2020-12-01] MEDS ORDERED: Heparin 1,000 UNITS/500 mL 500 ML ONE (08:48)
[2020-12-01] MEDS: Pantoprazole 40 MG VIAL IVP SCH (08:54)
[2020-12-01 09:57] LABS: INR 1.2; Prothrombin Time 14.1 Seconds (9.4-12.1)
[2020-12-01] MEDS ORDERED: *HR* Heparin 5,000 UNIT/ML VIAL ONE (12:31)
[2020-12-01] MEDS ORDERED: *HR* FentaNYL (PF) 100 MCG/2 ML VIAL IVP PRN (17:21)
[2020-12-01] MEDS ORDERED: Acetaminophen 325 MG TABLET PO PRN (17:21)
[2020-12-01] MEDS ORDERED: *HR* OxyCODONE Immed Rel 5 MG TABLET PO PRN (17:21)
[2020-12-01] MEDS ORDERED: Naloxone 0.4 MG/ML INJ IVP PRN (17:21)
[2020-12-02 03:02] LABS: Calcium 7.9 mg/dL (8.6-10.3); Potassium 3.9 mEq/L (3.5-5.1)
[2020-12-02] MEDS: Sodium Bicarbonate 75 MEQ in 0.45 % Sodium Chloride 1,000 ML IVC SCH ×2 (03:42→20:58)
[2020-12-02] MEDS ORDERED: *HR* Enoxaparin 30 MG/0.3 ML SYRINGE SQ SCH (06:00)
[2020-12-02] MEDS ORDERED: 0.9 % Sodium Chloride 250 ML IVC PRN (07:13)
[2020-12-02] MEDS ORDERED: *HR* Heparin 10,000 UNIT/10 ML VIAL IV PRN (07:13)
[2020-12-02] MEDS ORDERED: 0.9 % Sodium Chloride 1,000 ML PRIME SCH (07:15)
[2020-12-02 09:26] LABS: Hematocrit 28.1 % (35.3-44.9); Hemoglobin 9.4 g/dL (11.5-15.4); Mean Corpuscular HGB Conc 33.5 g/dL (31.6-35.5); Mean Corpuscular Hemoglobin 29.8 pg (28.0-33.3); Mean Corpuscular Volume 89.2 fL (83.0-100.0); Mean Platelet Volume 11.6 fL (9.4-12.4); Platelet Count 371 K/mcL (140-400); Red Blood Count 3.15 M/mcL (3.82-4.97); Red Cell Distribution Width 13.4 % (11.5-14.5); White Blood Count 13.7 K/mcL (4.3-11.1)
[2020-12-02 09:59] LABS: Eosinophils # 0.7 K/mcL (0.0-0.6); Neutrophils # 10.7 K/mcL (1.6-8.9)
[2020-12-02 10:01] LABS: Anisocytosis 1+ (Not Present); Hypochromasia Present (Not Present); Platelet Estimate Normal (Normal); Toxic Granulation Present (Not Present)
[2020-12-02 10:55] LABS: Magnesium 1.8 mg/dL (1.6-2.6); Troponin I < 0.03 ng/mL (< 0.04)
[2020-12-02] MEDS: Pantoprazole 40 MG VIAL IVP SCH (11:03)
[2020-12-02] MEDS: Doxycycline 100 MG in 0.9 % Sodium Chloride Mini Bag 100 ML IVPB SCH ×2 (11:04→18:33)
[2020-12-03 05:38] LABS: Calcium 7.7 mg/dL (8.6-10.3); Potassium 3.3 mEq/L (3.5-5.1)
[2020-12-03 05:40] LABS: Basophils # 0.1 K/mcL (0.0-0.2); Basophils % 0.8 %; Eosinophils # 0.8 K/mcL (0.0-0.6); Hemoglobin 9.9 g/dL (11.5-15.4); Immature Granulocytes % 4.3 % (0-4); Lymphocytes # 1.7 K/mcL (0.6-4.6); Lymphocytes % 10.2 %; Mean Corpuscular HGB Conc 31.9 g/dL (31.6-35.5); Mean Corpuscular Hemoglobin 28.8 pg (28.0-33.3); Mean Corpuscular Volume 90.1 fL (83.0-100.0); Mean Platelet Volume 11.7 fL (9.4-12.4); Monocytes % 11.9 %; Neutrophils # 11.2 K/mcL (1.6-8.9); Platelet Count 383 K/mcL (140-400); Red Blood Count 3.44 M/mcL (3.82-4.97); Red Cell Distribution Width 13.4 % (11.5-14.5); Segmented Neutrophils % 67.8 %; White Blood Count 16.5 K/mcL (4.3-11.1)
[2020-12-03] MEDS: *HR* Heparin 5,000 UNIT/ML VIAL SQ SCH ×3 (06:10→19:45)
[2020-12-03] MEDS: Doxycycline 100 MG in 0.9 % Sodium Chloride Mini Bag 100 ML IVPB SCH ×2 (06:11→16:37)
[2020-12-03] MEDS: Sodium Bicarbonate 75 MEQ in 0.45 % Sodium Chloride 1,000 ML IVC SCH ×2 (06:18→17:42)
[2020-12-03] MEDS ORDERED: 0.9 % Sodium Chloride 250 ML IVC PRN (07:47)
[2020-12-03] MEDS ORDERED: *HR* Heparin 10,000 UNIT/10 ML VIAL IV PRN (07:47)
[2020-12-03] MEDS: Pantoprazole 40 MG VIAL IVP SCH (08:07)
[2020-12-03] MEDS ORDERED: Acetaminophen 325 MG TABLET PO PRN (12:44)
[2020-12-03] MEDS ORDERED: *HR* OxyCODONE Immed Rel 5 MG TABLET PO PRN (12:44)
[2020-12-03] MEDS: Ondansetron 4 MG/2 ML VIAL IVP PRN (15:41)
[2020-12-03] MEDS ORDERED: Scopolamine Patch 1.5 MG PATCH.TD72 TD SCH (17:45)
[2020-12-04 03:58] LABS: Basophils # 0.1 K/mcL (0.0-0.2); Basophils % 0.8 %; Eosinophils # 0.9 K/mcL (0.0-0.6); Eosinophils % 5.6 %; Hematocrit 30.2 % (35.3-44.9); Hemoglobin 9.5 g/dL (11.5-15.4); Immature Granulocytes % 4.3 % (0-4); Lymphocytes # 1.8 K/mcL (0.6-4.6); Lymphocytes % 11.3 %; Mean Corpuscular HGB Conc 31.5 g/dL (31.6-35.5); Mean Corpuscular Hemoglobin 28.7 pg (28.0-33.3); Mean Corpuscular Volume 91.2 fL (83.0-100.0); Mean Platelet Volume 11.8 fL (9.4-12.4); Monocytes % 12.4 %; Neutrophils # 10.5 K/mcL (1.6-8.9); Platelet Count 350 K/mcL (140-400); Red Blood Count 3.31 M/mcL (3.82-4.97); Red Cell Distribution Width 13.6 % (11.5-14.5); Segmented Neutrophils % 65.6 %
[2020-12-04 04:11] LABS: Calcium 7.8 mg/dL (8.6-10.3); Phosphorous 4.1 mg/dL (2.7-4.5); Potassium 3.9 mEq/L (3.5-5.1)
[2020-12-04] MEDS: Sodium Bicarbonate 75 MEQ in 0.45 % Sodium Chloride 1,000 ML IVC SCH ×3 (04:19→07:49)
[2020-12-04] MEDS: Doxycycline 100 MG in 0.9 % Sodium Chloride Mini Bag 100 ML IVPB SCH ×2 (05:18→18:23)
[2020-12-04] MEDS: *HR* Heparin 5,000 UNIT/ML VIAL SQ SCH ×2 (05:18→16:04)
[2020-12-04] MEDS: Pantoprazole 40 MG VIAL IVP SCH (07:50)
[2020-12-04] MEDS: Ondansetron 4 MG/2 ML VIAL IVP PRN ×2 (07:50→20:38)
[2020-12-05] MEDS: *HR* Heparin 5,000 UNIT/ML VIAL SQ SCH ×4 (00:04→23:24)
[2020-12-05] MEDS: Doxycycline 100 MG in 0.9 % Sodium Chloride Mini Bag 100 ML IVPB SCH (05:37)
[2020-12-05] MEDS: Pantoprazole 40 MG VIAL IVP SCH (08:01)
[2020-12-05 08:40] LABS: Phosphorous 5.3 mg/dL (2.7-4.5); Potassium 4.3 mEq/L (3.5-5.1)
[2020-12-05] MEDS ORDERED: 0.9 % Sodium Chloride 250 ML IVC PRN (09:51)
[2020-12-05] MEDS ORDERED: *HR* Heparin 10,000 UNIT/10 ML VIAL IV PRN (09:51)
[2020-12-05 16:30] LABS: Basophils # 0.1 K/mcL (0.0-0.2); Basophils % 0.7 %; Eosinophils # 1.5 K/mcL (0.0-0.6); Eosinophils % 8.9 %; Hematocrit 31.4 % (35.3-44.9); Hemoglobin 10.2 g/dL (11.5-15.4); Immature Granulocytes % 3.7 % (0-4); Lymphocytes # 1.6 K/mcL (0.6-4.6); Lymphocytes % 9.1 %; Mean Corpuscular HGB Conc 32.5 g/dL (31.6-35.5); Mean Corpuscular Hemoglobin 29.7 pg (28.0-33.3); Mean Corpuscular Volume 91.3 fL (83.0-100.0); Mean Platelet Volume 11.3 fL (9.4-12.4); Monocytes # 1.8 K/mcL (0.0-1.3); Monocytes % 10.5 %; Neutrophils # 11.5 K/mcL (1.6-8.9); Platelet Count 285 K/mcL (140-400); Red Blood Count 3.44 M/mcL (3.82-4.97); Red Cell Distribution Width 13.6 % (11.5-14.5); Segmented Neutrophils % 67.1 %; White Blood Count 17.2 K/mcL (4.3-11.1)
[2020-12-06 08:43] LABS: Hematocrit 30.1 % (35.3-44.9); Hemoglobin 9.5 g/dL (11.5-15.4); Mean Corpuscular HGB Conc 31.6 g/dL (31.6-35.5); Mean Corpuscular Hemoglobin 28.6 pg (28.0-33.3); Mean Corpuscular Volume 90.7 fL (83.0-100.0); Mean Platelet Volume 12.1 fL (9.4-12.4); Monocytes # 1.8 K/mcL (0.0-1.3); Platelet Count 261 K/mcL (140-400); Red Blood Count 3.32 M/mcL (3.82-4.97); White Blood Count 17.5 K/mcL (4.3-11.1)
[2020-12-06 09:02] LABS: Calcium 7.8 mg/dL (8.6-10.3); Phosphorous 4.1 mg/dL (2.7-4.5); Potassium 4.1 mEq/L (3.5-5.1)
[2020-12-06] MEDS: *HR* Heparin 5,000 UNIT/ML VIAL SQ SCH ×2 (09:13→16:22)
[2020-12-06] MEDS: Pantoprazole 40 MG VIAL IVP SCH (09:13)
[2020-12-06 09:19] LABS: Lymphocytes # 2.1 K/mcL (0.6-4.6); Neutrophils # 13.7 K/mcL (1.6-8.9); Platelet Estimate Normal (Normal)
[2020-12-06] MEDS: Doxycycline 100 MG in 0.9 % Sodium Chloride Mini Bag 100 ML IVPB SCH ×2 (12:44→18:00)
[2020-12-06 12:53] LABS: Influenza A PCR Negative (Negative); Influenza B PCR Negative (Negative); Resp. Syncytial Virus PCR Negative (Negative)
[2020-12-06 13:00] LABS: SARS-CoV-2 by PCR (In House) Negative (Negative)
[2020-12-07] MEDS: *HR* Heparin 5,000 UNIT/ML VIAL SQ SCH ×4 (00:12→23:02)
[2020-12-07] MEDS ORDERED: *HR* LORazepam 2 MG/ML VIAL ONE ×2 (01:30→01:51)
[2020-12-07] MEDS ORDERED: levETIRAcetam 1,000 MG in 0.9 % Sodium Chloride 100 ML IVPB ONE (01:43)
[2020-12-07] MEDS: Doxycycline 100 MG in 0.9 % Sodium Chloride Mini Bag 100 ML IVPB SCH ×2 (06:15→17:17)
[2020-12-07] MEDS: Pantoprazole 40 MG VIAL IVP SCH (07:43)
[2020-12-07] MEDS ORDERED: *HR* Labetalol 20 MG/4 ML SYRINGE IVP ONE ×2 (09:21→11:18)
[2020-12-07] MEDS ORDERED: *HR* LORazepam 2 MG/ML VIAL IVP PRN (10:12)
[2020-12-07 14:27] LABS: Basophils # 0.1 K/mcL (0.0-0.2); Basophils % 0.5 %; Eosinophils # 1.1 K/mcL (0.0-0.6); Eosinophils % 5.1 %; Hematocrit 29.8 % (35.3-44.9); Hemoglobin 9.7 g/dL (11.5-15.4); Immature Granulocytes % 2.6 % (0-4); Lymphocytes # 1.3 K/mcL (0.6-4.6); Mean Corpuscular HGB Conc 32.6 g/dL (31.6-35.5); Mean Corpuscular Hemoglobin 29.3 pg (28.0-33.3); Mean Platelet Volume 11.9 fL (9.4-12.4); Monocytes # 2.1 K/mcL (0.0-1.3); Monocytes % 9.3 %; Platelet Count 247 K/mcL (140-400); Red Blood Count 3.31 M/mcL (3.82-4.97); Red Cell Distribution Width 14.3 % (11.5-14.5); Segmented Neutrophils % 76.5 %; White Blood Count 22.2 K/mcL (4.3-11.1)
[2020-12-07] MEDS: Piperacillin/Tazobactam 3.375 GM in 0.9 % Sodium Chloride Mini Bag 100 ML IVPB SCH (14:59)
[2020-12-07 15:12] LABS: Phosphorous 5.7 mg/dL (2.7-4.5); Potassium 4.1 mEq/L (3.5-5.1)
[2020-12-07] MEDS: Ipratropium/Albuterol Neb 3 ML IH SCH ×2 (15:17→21:57)
[2020-12-07 18:18] LABS: ABG Base Excess 7 mEq/L (-2 to 3); ABG HCO3 29 mEq/L (21-27); ABG Oxygen Saturation 95 % (95-98); ABG PCO2 33 mmHg (35-45); ABG PH 7.56 pH Units (7.32-7.45); ABG PO2 63 mmHg (85-104); ABG TCO2 30 mEq/L (20-26)
[2020-12-07] MEDS ORDERED: Acetaminophen IV 1,000 MG/100 ML BAG IVPB ONE (18:25)
[2020-12-07] MEDS ORDERED: Vancomycin 1 EACH in 0.9 % Sodium Chloride 250 ML IVPB SCH (19:00)
[2020-12-07] MEDS ORDERED: Vancomycin 2,000 MG/520 ML IV.SOLN IVPB ONE (19:02)
[2020-12-08] MEDS: Ipratropium/Albuterol Neb 3 ML IH SCH ×4 (03:52→21:04)
[2020-12-08 04:20] LABS: Basophils # 0.1 K/mcL (0.0-0.2); Basophils % 0.6 %; Eosinophils # 1.9 K/mcL (0.0-0.6); Eosinophils % 9.2 %; Hematocrit 26.7 % (35.3-44.9); Hemoglobin 8.6 g/dL (11.5-15.4); Immature Granulocytes % 2.1 % (0-4); Lymphocytes # 1.6 K/mcL (0.6-4.6); Lymphocytes % 8.1 %; Mean Corpuscular HGB Conc 32.2 g/dL (31.6-35.5); Mean Corpuscular Hemoglobin 29.5 pg (28.0-33.3); Mean Corpuscular Volume 91.4 fL (83.0-100.0); Mean Platelet Volume 11.8 fL (9.4-12.4); Monocytes # 1.9 K/mcL (0.0-1.3); Monocytes % 9.6 %; Neutrophils # 14.3 K/mcL (1.6-8.9); Platelet Count 213 K/mcL (140-400); Red Blood Count 2.92 M/mcL (3.82-4.97); Red Cell Distribution Width 14.6 % (11.5-14.5); Segmented Neutrophils % 70.4 %; White Blood Count 20.3 K/mcL (4.3-11.1)
[2020-12-08 04:46] LABS: Albumin 2.7 g/dL (3.5-5.7); Bilirubin,Total 0.5 mg/dL (0.3-1.0); Calcium 7.9 mg/dL (8.6-10.3); Globulin 2.7 g/dL (2.4-3.5); Phosphorous 6.7 mg/dL (2.7-4.5); Potassium 4.5 mEq/L (3.5-5.1); Total Protein 5.4 g/dL (6.4-8.9)
[2020-12-08] MEDS ORDERED: Doxycycline 100 MG VIAL ONE (05:22)
[2020-12-08] MEDS: Doxycycline 100 MG in 0.9 % Sodium Chloride Mini Bag 100 ML IVPB SCH (05:31)
[2020-12-08] MEDS: Piperacillin/Tazobactam 3.375 GM in 0.9 % Sodium Chloride Mini Bag 100 ML IVPB SCH (05:32)
[2020-12-08] MEDS: Pantoprazole 40 MG VIAL IVP SCH (08:24)
[2020-12-08] MEDS: *HR* Heparin 5,000 UNIT/ML VIAL SQ SCH ×2 (08:24→16:17)
[2020-12-08 11:18] LABS: Adenovirus Not Detected (Not Detect); Bordetella Pertussis Not Detected (Not Detect); Chlamydophila pneumoniae Not Detected (Not Detect); Coronavirus 229E Not Detected (Not Detect); Coronavirus HKU1 Not Detected (Not Detect); Coronavirus NL63 Not Detected (Not Detect); Coronavirus OC43 Not Detected (Not Detect); Human Metapneumovirus Not Detected (Not Detect); Human Rhinovirus/Enterovirus Not Detected (Not Detect); Influenza A Subtype 2009 H1 Not Detected (Not Detect); Influenza B Not Detected (Not Detect); Mycoplasma pneumoniae Not Detected (Not Detect); Parainfluenza Virus 1 Not Detected (Not Detect); Parainfluenza Virus 2 Not Detected (Not Detect); Parainfluenza Virus 3 Not Detected (Not Detect); Parainfluenza Virus 4 Not Detected (Not Detect); Respiratory Syncytial Virus Not Detected (Not Detect); SARS-CoV-2 Not Detected (Not Detect)
[2020-12-08] MEDS ORDERED: DAPTOmycin 550 MG in 0.9 % Sodium Chloride 100 ML IVPB SCH (12:00)
[2020-12-08] MEDS ORDERED: DAPTOmycin 500 MG in 0.9 % Sodium Chloride 100 ML IVPB SCH (18:00)
[2020-12-09 00:26] VITALS: BP 147/89; PULSE 75; TEMP 99.2; O2SAT 94
[2020-12-09] MEDS: *HR* Heparin 5,000 UNIT/ML VIAL SQ SCH (01:15)
== END 2020-12-09 01:52 | disposition short-term general hospital (02) | DRG 711 ==
LOC: EMEROOARM 19:10 → 3ANU 19:10 → SUATTDRO 11-26 18:55 → 3BNU 11-26 21:48 → 2ANU 12-01 15:46 → 2NNU 12-07 06:57
PROVIDERS: ADMIT Surgery; ATTEND Internal Medicine